=== PATIENT | female | born 1985 | race Asian ===

== ENCOUNTER 2018-05-10 09:26 | Emergency (ER) | payer OTHER ==
[2018-05-10] MEDS ORDERED: methylPREDNISolone 125 MG* 2 ML VIAL IM ONE ×2 (09:27→09:28)
[2018-05-10] MEDS ORDERED: Albuterol 2.5 MG/3 ML NEB.SOL* (0.083%) INH ONE (09:27)
--- NOTE | 2018-05-10 09:34 | UC ---
Shortness of Breath HPI - HPI Summary HPI Summary: 33 yo female presents with shortness of breath and coughing. She is accompanied by her friend who drove her here. Pt tells me that she has a history of asthma, but very rarely has an asthma "attack" and if she does it is usually only when she gets bronchitis or other illnesses. This morning pt started coughing and could not stop. She had an old albuterol inhaler that she tried to use, but says it was about 6 years old and is unsure if it even worked. She became very anxious because she could not stop coughing and felt short of breath. Her friend drove her directly to . Pt denies fever, chest pain, abdominal pain, or recent illness. She additionally tells me that she was at [facility] 2 days ago for a persistent cough and told her symptoms were viral. She was given tessalon, which she has been taking with mild relief of her cough. - History of Current Complaint Stated Complaint: SOB Time Seen by Provider: 05/10/18 09:27 Hx Obtained From: Patient Onset/Duration: Sudden Onset - Allergy/Home Medications Allergies/Adverse Reactions: Allergies Allergy/AdvReac Type Severity Reaction Status Date / Time fluticasone [From Flonase] Allergy Unknown Verified 05/10/18 09:32 Reaction Details Home Medications: Home Medications Albuterol HFA INHALER* [Ventolin HFA Inhaler*] 2 puff INH Q4HR PRN 05/10/18 [ History Confirmed 05/10/18] Cough Suppressant 05/10/18 [History] PMH/Surg Hx/FS Hx/Imm Hx Respiratory History: Asthma - Surgical History Surgical History: None - Family History Known Family History: Positive: None - Social History Occupation: Employed Full-time Lives: With Family Alcohol Use: Occasionally Substance Use Type: None Smoking Status (MU): Never Smoked Tobacco Review of Systems Constitutional: Negative Skin: Negative Respiratory: Shortness Of Breath, Cough Cardiovascular: Negative Gastrointestinal: Negative Neurovascular: Negative Neurological: Negative Psychological: Negative All Other Systems Reviewed And Are Negative: Yes Physical Exam - Summary Physical Exam Summary: GENERAL: NAD. WDWN. No pain distress. SKIN: No rashes, sores, lesions, or open wounds. HEENT: Head: AT/NC Eyes: Conjunctiva clear without inflammation or discharge. Ears: Hearing grossly normal. TMs intact, no bulging, erythema, or edema. Nose: Nasal mucosa pink and moist. NTTP maxillary and frontal sinus. Throat: Posterior oropharynx without exudates, erythema, or tonsillar enlargement. Uvula midline. NECK: Supple. Nontender. No lymphadenopathy. CHEST: Mild wheezing throughout. No r/r. No accessory muscle use. Breathing comfortably and in no distress. CV: RRR. Without m/r/g. Pulses intact. Cap refill <2seconds NEURO: Alert. CN II-XII grossly intact. PSYCH: Age appropriate behavior. Triage Information Reviewed: Yes Vital Signs: Vital Signs: Temp Pulse Resp BP Pulse Ox 97 F 77 22 171/107 97 05/10/18 09:36 05/10/18 09:36 05/10/18 09:36 05/10/18 09:36 05/10/18 09:36 Vital Signs Reviewed: Yes Re-Evaluation - Re-Evaluation First Eval Re-Evaluation Time: 10:00 Change: Improved Comment: Significant improvement s/p albuterol nebulizer and steroids Shortness of Breath Dx - Course Course Of Treatment: CXR: IMPRESSION: No radiographic evidence of acute cardiopulmonary disease. She was given an albuterol nebulizer treatment and solumedrol in the clinical course. She experienced significant improvement of her SOB. She was monitored for an additional ~40minutes and remained stable and breathing comfortably. Will dc with dx of bronchitis vs asthma exacerbation. F/ u if symptoms persist or worsen. - Differential Dx/Diagnosis Provider Diagnoses: Asthma exacerbation. SOB Discharge - Sign-Out/Discharge Documenting (check all that apply): Patient Departure All imaging exams completed and their final reports reviewed: Yes - Discharge Plan Condition: Stable Disposition: HOME Prescriptions: Albuterol HFA INHALER* [Ventolin HFA Inhaler*] 1 - 2 puff INH Q6H PRN #1 mdi PRN Reason: Sob/Wheezing Azithromycin TAB* [Zithromax TAB (Z-DG) 250 mg #6 tabs] 2 tab PO .TODAY, THEN 1 DAILY #1 dg predniSONE TAB* [Deltasone 20 MG TAB*] 60 mg PO DAILY #10 tab Patient Education Materials: Asthma (DC), Acute Bronchitis (ED) Referrals: No Primary Care Phys,NOPCP [Primary Care Provider] - Additional Instructions: If you develop a fever, shortness of breath, chest pain, new or worsening symptoms - please call your PCP or go to the ED. Your blood pressure was high at todays visit. Please see your primary provider within 4 weeks for recheck and re-evaluation. 1) Start taking the prednisone tomorrow 60mg for one day then 40mg for two days then 20mg for 3 days - Billing Disposition and Condition Condition: STABLE Disposition: Home
[2018-05-10 09:40] VITALS: BP 171/107
--- NOTE | 2018-05-10 10:09 | RAD ---
INDICATION: Cough COMPARISON: None TECHNIQUE: PA and lateral views of the chest were obtained. FINDINGS: The heart and mediastinum are normal in size and contour. The lungs are grossly clear. There is no evidence of large pleural effusion. Visualized bones are normal for the patient's age. There is no radiographic evidence of free air beneath the diaphragm IMPRESSION: No radiographic evidence of acute cardiopulmonary disease.
--- NOTE | 2018-05-12 10:17 | UC ---
- Progress Note Progress Note: PT CALLED WANTING A CALL BACK. I SPOKE WITH HER - NAME AND CONFIRMED. SHE IS CONCERNED THAT SHE IS NOT FEELING MUCH BETTER TODAY. VOICE STILL HOARSE AND STILL COUGHING. HAD ANOTHER "ASTHMA ATTACK" THIS MORNING. IS FEELING ACHY. NO FEVER. ALBUTEROL IS HELPING. HAS NOT TAKEN HER AZITH OR PREDNISONE YET TODAY. ADVISED TO INCREASE PREDNISONE TO 60MG TODAY AND 40MG NEXT 2 DAYS. CONTINUE ALBUTEROL NEEDED. AZITH UNLIKELY TO BE CAUSING HER ACHINESS. CONDITION IS LIKELY COMBINATION OF VIRAL ILLNESS AND ASTHMA EXACERBATION. SHE STATES SHE GETS THIS SYNDROME EVERY COUPLE OF YEARS AND IT "JUST STOPS" AFTER A WHILE. PT INSTRUCTED TO CONTINUE CURRENT MANAGEMENT AND FOLLOW-UP WITH HER PCP. GO TO ED WITHOUT FAIL IF SHE DEVELOPS WORSENING SOB, FEVER, PAIN OR ANY OTHER CONCERNING SYMPTOMS. - HELENA WILSON MD Re-Evaluation - Re-Evaluation First Eval Re-Evaluation Time: 10:00 Change: Improved Comment: Significant improvement s/p albuterol nebulizer and steroids Discharge - Sign-Out/Discharge Documenting (check all that apply): Post-Discharge Follow Up All imaging exams completed and their final reports reviewed: Yes - Discharge Plan Condition: Stable Disposition: HOME Prescriptions: Albuterol HFA INHALER* [Ventolin HFA Inhaler*] 1 - 2 puff INH Q6H PRN #1 mdi PRN Reason: Sob/Wheezing Azithromycin TAB* [Zithromax TAB (Z-HUSSAIN) 250 mg #6 tabs] 2 tab PO .TODAY, THEN 1 DAILY #1 hussain predniSONE TAB* [Deltasone 20 MG TAB*] 60 mg PO DAILY #10 tab Patient Education Materials: Asthma (DC), Acute Bronchitis (ED) Referrals: No Primary Care Phys,NOPCP [Primary Care Provider] - Additional Instructions: If you develop a fever, shortness of breath, chest pain, new or worsening symptoms - please call your PCP or go to the ED. Your blood pressure was high at todays visit. Please see your primary provider within 4 weeks for recheck and re-evaluation. 1) Start taking the prednisone tomorrow 60mg for one day then 40mg for two days then 20mg for 3 days - Billing Disposition and Condition Condition: STABLE Disposition: Home
== END 2018-05-10 10:45 | disposition home or self-care (01) ==
LOC: UCEAST 09:26
DX: J45.901 Unspecified asthma with (acute) exacerbation (principal); R06.02 Shortness of breath; Z88.8 Allergy status to other drugs, medicaments and biological substances
CPT/HCPCS: 71046; 96372; 99202; G0463; J2930

== ENCOUNTER 2022-07-23 01:36 | Inpatient (IN) ==
[2022-07-23] MEDS ORDERED: Buffered Lidocaine 1% SYRIN 1 ml INTRADERM ONE (02:23)
[2022-07-23] MEDS ORDERED: Lactated Ringers 1000 ml BAG 1,000 ML IV ONE ×2 (02:23→04:14)
[2022-07-23 02:57] LABS: ABS Monocytes 0.6 10^3/ul (0-0.8); ABS Neutrophils 15.1 10^3/ul (1.5-7.7); Eosinophil % 0.1 %; Hematocrit 40 % (35-47); Hemoglobin 13.4 g/dL (12.0-16.0); Lymphocyte % 5.8 %; Mean Corpuscular HGB Conc 34 g/dL (31-36); Mean Corpuscular Hemoglobin 31 pg (27-31); Mean Corpuscular Volume 91 fL (80-97); Mean Platelet Volume 9.8 fL (7.4-10.4); Platelet Count 197 10^3/uL (150-450); Red Blood Count 4.38 10^6 /uL (3.70-4.87); Red Cell Distribution Width 14 % (10-15); White Blood Count 16.7 10^3/uL (3.5-10.8)
[2022-07-23] MEDS ORDERED: Lactated Ringers 1000 ml BAG 1,000 ML IV SCH ×3 (03:00→15:00)
[2022-07-23] MEDS ORDERED: OBEPIDURAL (200 ML) 200 ML EPIDURAL ONE (03:03)
[2022-07-23 03:13] LABS: Albumin 3.6 g/dL (3.2-5.2); Albumin/Globulin Ratio 1.5 (1-3); Calcium 9.2 mg/dL (8.6-10.3); Globulin 2.4 g/dL (2-4); Potassium 3.7 mmol/L (3.5-5.0); Total Bilirubin 0.4 mg/dL (0.2-1.0); Uric Acid 4.5 mg/dL (2.3-6.6); eGFR CKD-EPI 122.5 (>60)
[2022-07-23] MEDS ORDERED: Bupivacaine 0.25% w/EPI 10 ML SDV ONE (03:25)
[2022-07-23] MEDS ORDERED: Phenylephrine 40 mcg/mL 10mL (400mcg) SYRINGE IV PUSH PRN ×2 (04:14)
[2022-07-23] MEDS ORDERED: Sodium Citrate/Citric Acid LIQ 15 ML UDC PO PRN (04:14)
[2022-07-23] MEDS ORDERED: OBEPIDURAL (200 ML) 200 ML EPIDURAL SCH (05:00)
[2022-07-23 05:02] LABS: Urine Appearance Clear; Urine Bilirubin Negative (Negative); Urine Blood Negative (Negative); Urine Color Yellow; Urine Glucose Negative (Negative); Urine Ketones 1+ (Negative); Urine Nitrite Negative (Negative); Urine Protein 1+(30 mg/dL) (Negative); Urine Specific Gravity 1.014 (1.002-1.030); Urine Urobilinogen Negative (Negative)
[2022-07-23 05:11] LABS: Urine Bacteria Absent (Absent); Urine Red Blood Cell Trace(0-2/hpf) (Absent); Urine White Blood Cell Trace(0-5/hpf) (Absent)
[2022-07-23 05:22] LABS: Urine Benzodiazepine Screen None Detected (None Detect); Urine Cannabinoids Screen None Detected (None Detect); Urine Opiates Screen None Detected (None Detect)
[2022-07-23] MEDS ORDERED: Oxytocin in LR 20,000 MILLI.UNIT/1,000 ML BAG IV SCH ×2 (08:00→14:30)
[2022-07-23] MEDS ORDERED: Albuterol HFA INHALER 8 gm MDI INH PRN (08:13)
[2022-07-23 09:43] LABS: ABS Lymphocytes 0.6 10^3/ul (1.0-4.8); ABS Monocytes 0.6 10^3/ul (0-0.8); ABS Neutrophils 16.9 10^3/ul (1.5-7.7); Hematocrit 37 % (35-47); Hemoglobin 12.3 g/dL (12.0-16.0); Lymphocyte % 3.2 %; Mean Corpuscular HGB Conc 33 g/dL (31-36); Mean Corpuscular Hemoglobin 30 pg (27-31); Mean Corpuscular Volume 91 fL (80-97); Mean Platelet Volume 9.7 fL (7.4-10.4); Platelet Count 157 10^3/uL (150-450); Red Blood Count 4.05 10^6 /uL (3.70-4.87); Red Cell Distribution Width 14 % (10-15); White Blood Count 18.1 10^3/uL (3.5-10.8)
[2022-07-23] MEDS: Ampicillin ADVAN 2 GM in NS 0.9% 100 ml BAG 100 ML IVPB SCH ×3 (09:56→22:28)
[2022-07-23] MEDS: Gentamicin ADULT 250 MG in NS 0.9% 100 ml BAG 100 ML IVPB SCH (10:26)
[2022-07-23] MEDS ORDERED: Oxytocin 10 UNITS/ML 1 ML VIAL ONE (11:00)
[2022-07-23] MEDS ORDERED: Lidocaine 2% PF 10 ML AMP (OR) ONE (11:02)
[2022-07-23] MEDS ORDERED: Ondansetron 4 mg VIAL 2 MG/ML 2 ml VIAL IV PRN ×2 (11:08→11:17)
[2022-07-23] MEDS ORDERED: Naloxone 0.4 mg VIAL 0.4 mg/ml 1 ml VIAL IV PRN (11:08)
[2022-07-23] MEDS ORDERED: fentaNYL 100 mcg/2 ml 50 MCG/ML VIAL IV PRN (11:08)
[2022-07-23] MEDS ORDERED: Morphine PF AMP (0.5MG/ML) 5 MG/10 ML AMP ONE (11:11)
[2022-07-23] MEDS ORDERED: Naloxone 0.4 mg VIAL 0.4 mg/ml 1 ml VIAL IV PUSH PRN (11:17)
[2022-07-23] MEDS ORDERED: Acetaminophen IV 1 GM/100ML 1,000 MG/100 ML BAG IV PRN (11:17)
[2022-07-23] MEDS ORDERED: Metoclopramide 5 MG/ML VIAL (10 mg) IV PRN (11:17)
[2022-07-23] MEDS ORDERED: Dibucaine 1% OINT 28.35 GM TUBE PR PRN (14:21)
[2022-07-23] MEDS ORDERED: Witch Hazel PAD JAR TOPICAL PRN (14:21)
[2022-07-23] MEDS ORDERED: Glycerin ADULT 2.4 gm SUPP PR PRN (14:21)
[2022-07-24] MEDS: Ampicillin ADVAN 2 GM in NS 0.9% 100 ml BAG 100 ML IVPB SCH ×2 (03:12→10:20)
[2022-07-24 07:31] LABS: ABS Basophils 0.2 10^3/ul (0-0.2); ABS Eosinophils 0.1 10^3/ul (0-0.6); ABS Lymphocytes 0.9 10^3/ul (1.0-4.8); ABS Monocytes 0.6 10^3/ul (0-0.8); ABS Neutrophils 18.9 10^3/ul (1.5-7.7); Eosinophil % 0.3 %; Hematocrit 36 % (35-47); Lymphocyte % 4.5 %; Mean Corpuscular HGB Conc 33 g/dL (31-36); Mean Corpuscular Hemoglobin 31 pg (27-31); Mean Corpuscular Volume 92 fL (80-97); Mean Platelet Volume 9.8 fL (7.4-10.4); Platelet Count 150 10^3/uL (150-450); Red Blood Count 3.91 10^6 /uL (3.70-4.87); Red Cell Distribution Width 14 % (10-15); White Blood Count 20.7 10^3/uL (3.5-10.8)
[2022-07-24] MEDS: Gentamicin ADULT 250 MG in NS 0.9% 100 ml BAG 100 ML IVPB SCH (16:30)
[2022-07-26 09:15] VITALS: BP 112/66
== END 2022-07-26 12:31 | disposition home or self-care (01) | DRG 540 ==
LOC: MCHOBOUT 01:36 → MCHOB 02:25
PROVIDERS: ADMIT Midwife; ATTEND Midwife